=== PATIENT | male | born 1945 | race Caucasian/White ===

== ENCOUNTER → 2020-05-27 | Outpatient (CLI) | payer MEDICARE ==
[~2020-05-27] MED LIST: REGADENOSON 0.4 MG/5 ML PF SYRINGE IVP ONE; SESTAMIBI TC99M/UD ISOTOPE 1 EA INJ INJ ONE
[2020-05-27 08:45] VITALS: BP 115/78
[2020-05-27 09:28] VITALS: BP 109/65
== END | disposition home or self-care (01) ==
LOC: CARDMN 08:24
PROVIDERS: ATTEND Internal Medicine Cardiovascular Disease
DX: I25.9 Chronic ischemic heart disease, unspecified (principal); R07.9 Chest pain, unspecified
CPT/HCPCS: 78452; 93017; 93306; A9500

== ENCOUNTER → 2021-07-13 | Outpatient (CLI) | payer MEDICARE, BC | END | disposition home or self-care (01) | LOC: RADPV 08:24 | PROVIDERS: ATTEND Internal Medicine Cardiovascular Disease | DX: I08.2 Rheumatic disorders of both aortic and tricuspid valves (principal); I25.10 Atherosclerotic heart disease of native coronary artery without angina pectoris | CPT/HCPCS: 93306 ==

== ENCOUNTER → 2022-12-12 | Outpatient (CLI) | payer MEDICARE, BC | END | disposition home or self-care (01) | LOC: RADPV 10:40 | PROVIDERS: ATTEND Internal Medicine Cardiovascular Disease | DX: I08.2 Rheumatic disorders of both aortic and tricuspid valves (principal); I77.810 Thoracic aortic ectasia | CPT/HCPCS: 93306 ==

== ENCOUNTER → 2024-12-10 | Outpatient (CLI) | payer MEDICARE, BC ==
[~2024-12-10] MED LIST changes: +0.9% SODIUM CHLORIDE 10 ML SYRINGE IVP ONE; +IOHEXOL 350 MG/ML 150 ML VIAL ONE; -REGADENOSON 0.4 MG/5 ML PF SYRINGE IVP ONE; -SESTAMIBI TC99M/UD ISOTOPE 1 EA INJ INJ ONE; +SODIUM CHLORIDE 0.9% 100 ML ONE
== END | disposition home or self-care (01) ==
LOC: RADMN 08:30
PROVIDERS: ATTEND Internal Medicine Cardiovascular Disease
DX: K57.30 Diverticulosis of large intestine without perforation or abscess without bleeding (principal); K40.90 Unilateral inguinal hernia, without obstruction or gangrene, not specified as recurrent; K59.00 Constipation, unspecified; N32.89 Other specified disorders of bladder; K31.89 Other diseases of stomach and duodenum; M47.819 Spondylosis without myelopathy or radiculopathy, site unspecified; M25.78 Osteophyte, vertebrae; I72.3 Aneurysm of iliac artery; I70.0 Atherosclerosis of aorta; Z98.62 Peripheral vascular angioplasty status
CPT/HCPCS: 74174; 74175; Q9967; J7050; 72191

== ENCOUNTER → 2025-01-15 | Outpatient (CLI) | payer MEDICARE, BC | END | disposition home or self-care (01) | LOC: RADPV 09:21 | PROVIDERS: ATTEND Internal Medicine Cardiovascular Disease | DX: I08.3 Combined rheumatic disorders of mitral, aortic and tricuspid valves (principal); I70.0 Atherosclerosis of aorta; I72.3 Aneurysm of iliac artery; I50.1 Left ventricular failure, unspecified | CPT/HCPCS: 93306 ==